=== PATIENT | female | born 1980 | race Caucasian/White ===

== ENCOUNTER 2016-07-27 02:10 | Inpatient (IN) | payer OTHER ==
[~2016-07-27] VITALS: Ht 170.2 cm; Wt 119.7 kg
[~2016-07-27 02:10] MED LIST: AUGMENTIN 875-1 EACH PO; CYCLOBENZAPRINE10 M1 PO; CYMBALTA30 M1 PO; DYAZIDE 37.5-21 EACH PO; OXYCODONE HCL30 M1 PO; PERCOCET 5-3251 EACH PO
--- NOTE | 2016-07-27 09:28 | Admission Core Measures ---
Admission Lab Results I reviewed the following labs: Laboratory Tests 07/27 632 Urines Urine Test NEGATIVE Admission Meds I reviewed the following Meds: Current Medications Sig/Anne Start time Last Medication Dose Stop Time Status Admin Cefazolin Sodium 3,000 MG ONCE 07/27 0000 NR (Kefzol-Ancef Inj) 07/27 2358 Heparin Sodium 5,000 UNIT ONCE 07/27 0000 NR (Porcine) 07/27 2358 Acute Coronary Syndrome Inclusion Criteria ACS Diagnosis No Inpatient Core Measures LDL Reminder: If No, please order W/I first 24hr of stay Congestive Heart Failure Inclusion Criteria CHF Diagnosis No Cerebrovascular accident Inclusion Criteria CVA/TIA Diagnosis No Inpatient Core Measures Bedside Swallow Eval Reminder: If BSE failed, place ST order Antithrombotic Reminder: Order Antithrombotic Medication by end of day 2 Antithrombotic Reminder: Document Reason Antithrombotic Not ordered by end of day 2 AFIB/Flutter Reminder: If Present, add to problem list AFIB/Flutter Reminder: Order Anticoag Medication for pts with AFIB/Flutter Atherosclerosis Reminder: If Present, add to problem list LDL Reminder: If No, please order W/I first 24hr of stay PT Order Reminder: If No, please order Venous thromboembolism Inpatient Core Measures VTE Risk Factors: Obesity, [facility] prophylaxis d/t No contraindications No VTE Pharm Prophylaxis d/t No contraindications Inclusion Criteria - Per Current guidelines, there needs to be overlap - treatment for the first 5 days of Warfarin therapy. - Parenteral Anticoagulation (IV or SC) needs to be - given along with Warfarin therapy. VTE Diagnosis No VTE Type NONE VTE Confirmed by (Test) NONE Problem List As ranked by this Provider includes Assessment & Plan 1. S/P laparoscopic sleeve gastrectomy HOME MEDS Home Med List Duloxetine Hydrochloride (Cymbalta) 30 MG CAPSULE.DR 1 CAP PO DAILY PAIN ( Reported) Oxycodone HCl 30 MG TABLET 1 TAB PO Q4P PRN PAIN (Reported) Triamterene/Hydrochlorothiazid (Dyazide 37.5-25 Capsule) 37.5 MG-25 MG CAPSULE 1 CAP PO DAILY EDEMA (Reported)
--- NOTE | 2016-07-27 09:41 | Operative Report ---
Operative/Inv Procedure Report Surgery Date: 07/27/16 Name of Procedure: Laparoscopic sleeve gastrectomy, Laparoscopic hiatal hernia repair Pre-Operative Diagnosis: Morbid obesity BMI 46 Post-Operative Diagnosis: Morbid Obesity BMI 46, Hiatal hernia Estimated Blood Loss: less than 50ml Surgeon/Human Resources Admin: LAUREN KINSEY DO Anesthesia: general endotracheal tube IV Fluids: 1600 cc Drains: 10 Fr RUQ MAC Drain Specimens: Stomach Complications: None Condition: Stable Operative Indication: This is a 36-year-old female that presented to the office for workup for bariatric surgery. After appropriate workup was completed with discussed with the patient the band, the sleeve, and the gastric bypass. The patient chose to undergo a sleeve gastrectomy. All risks including but not limited to bleeding, infection, leak, stricture, injury to surrounding bowel/esophagus/stomach/liver/ spleen, long-term reflux, DVT/PE, and mortality of 04/999 patients were discussed in detail. The patient understood everything and decided to proceed. Operative/Procedure Note Note: The patient was brought to the operating room and placed on the operating room table in supine position. Venodyne stockings were placed and adequate general endotracheal anesthesia was obtained. The patient was prepped and draped in standard surgical fashion. Began the procedure by making a 2 cm transverse incision supraumbilically and slightly to the left of the midline. Then using a 12 mm clear Visiport and a 10 mm 0 laparoscope, the abdominal cavity was accessed. Great care was taken to go through the anterior rectus sheath, the posterior rectus sheath, and through the peritoneum. Once we entered the peritoneum the abdominal cavity was insufflated to 15 mmHg. Upon initial examination no obvious gross pathology was seen. Accessory trocars were placed, 5 mm in the epigastrium for the Rachel liver retractor. The retractor was inserted and the liver was retracted anteriorly exposing the hiatus, small hiatal hernia was seen. 5 mm ports were placed in the right and left upper quadrant, a 5 mm left lateral port, and a 15 mm right lateral port. Began the procedure by mobilizing the greater curvature of the stomach approximately 7 cm from the pylorus. Once the retrogastric space was reached the whole greater curvature was mobilized maintaining hemostasis using Harmonic scalpel. Full hiatal dissection was performed, a small hiatal hernia was seen. The left augustin of the diaphragm was dissected away from the esophagus, reducing the hernia sac. We then brought our attention to the right augustin, the pars flaccida was opened until the right augustin was clearly visualized. Following this the right augustin was dissected away from the esophagus as well and the esophagus was circumferentially dissected out of the chest. At the completion of dissection the esophagus was in the abdominal cavity for about 2-3 cm. The esophagus was retracted anteriorly and the hiatus was closed using 2-0 Tycron suture. At the completion of the closure there was ample room for the esophagus and the hiatus was adequately closed. Posterior adhesions were taken down using Harmonic scalpel as well. Once the stomach was adequately mobilized a 38 Thai bougie was inserted and placed along the lesser curvature of the stomach. Once the bougie was in the appropriate position will began creating our sleeve, two 60 mm black staple loads with seamguard followed by three 60 mm purple staple loads with seamguard and finished with a 45 mm purple plain load. Great care was taken to leave ample room at the incisura angularis, to prevent any twisting or kinking of the sleeve, to stay lateral to the esophagogastric fat pad, and to do a full fundal excision. At the completion of the staple line the staple line was examined, it appeared intact and no obvious bleeding was noted. The bougie was removed, the sleeve was lying nicely without any twisting or kinking. The resected stomach was removed through the 15 right lateral port site. The port and the left upper quadrant were irrigated until clear. A 10 Thai MAC drain was placed through the right upper quadrant incision under the liver and over the spleen. All ports were removed under direct visualization no obvious bleeding was noted. The 15 mm port site fascia was closed using 0 Vicryl suture. The skin was closed using 4-0 Vicryl. Steri-Strips and dressings were placed. The patient was successfully extubated and transferred to the recovery room in stable condition. The patient tolerated the procedure well with no complications. Findings: 3 cm hiatal hernia, 38 Fr Bougie
[2016-07-27 12:08] VITALS: BP 154/106
[2016-07-27] MEDS ORDERED: ZANAFLEX4 M2 PO (12:27)
[2016-07-27] MEDS ORDERED: OXYCONTIN40 M1 PO (12:28)
[2016-07-27] MEDS ORDERED: XANAX0.5 M1 PO (12:28)
--- NOTE | 2016-07-27 13:24 | Admission Core Measures ---
Admission Lab Results I reviewed the following labs: Laboratory Tests 07/27 06 Urines Urine Test NEGATIVE Admission Meds I reviewed the following Meds: Current Medications Sig/Anne Start time Last Medication Dose Stop Time Status Admin Acetaminophen/ 15 ML Q6P PRN 07/27 1145 AC Hydrocodone Bitart (Hycet) Alprazolam 0.5 MG TID PRN 07/27 1330 UNVr (Xanax) 08/03 1329 Cefazolin Sodium 1,000 MG IQ8 07/27 1600 AC (Kefzol-Ancef Inj) 07/28 0001 Duloxetine HCl 30 MG DAILY 07/27 1000 AC (Cymbalta) Heparin Sodium 5,000 UNIT Q8 07/27 1400 AC (Porcine) Hydromorphone HCl 1 MG Q3P PRN 07/27 1145 AC 07/27 (Dilaudid) 1235 Hyoscyamine 0.125 MG Q4 07/27 1000 AC (Levsin) Ketorolac 30 MG Q6 07/27 1200 AC 07/27 Tromethamine 07/28 0601 1150 (Toradol) Ondansetron HCl 4 MG Q6P PRN 07/27 1145 AC (Zofran) Oxycodone HCl 40 MG Q12 07/27 2200 UNVr (OxyCONTIN) Oxycodone HCl 30 MG Q6-PRN PRN 07/27 1330 UNVr (Roxicodone) Pantoprazole Sodium 40 MG DAILY 07/27 1000 AC 07/27 (Protonix) 1150 Potassium Chloride 20 MEQ .Q8H 07/27 1145 CAN (KCl 20MEQ in D5W NS 1000ML) Dextrose/Sodium 1,000 ML Chloride (D5-Normal Saline) Potassium Chloride 20 MEQ Q8H 07/27 1145 AC 07/27 (KCl 20MEQ in D5W NS 1150 1000ML) Dextrose/Sodium 1,000 ML Chloride (D5-Normal Saline) Simethicone 40 MG Q6P PRN 07/27 1145 AC (Mylicon) Tizanidine HCl 4 MG Q6-PRN PRN 07/27 1330 UNVr (Zanaflex) Acute Coronary Syndrome Inclusion Criteria ACS Diagnosis No Inpatient Core Measures LDL Reminder: If No, please order W/I first 24hr of stay Congestive Heart Failure Inclusion Criteria CHF Diagnosis No Cerebrovascular accident Inclusion Criteria CVA/TIA Diagnosis No Inpatient Core Measures Bedside Swallow Eval Reminder: If BSE failed, place ST order Antithrombotic Reminder: Order Antithrombotic Medication by end of day 2 Antithrombotic Reminder: Document Reason Antithrombotic Not ordered by end of day 2 AFIB/Flutter Reminder: If Present, add to problem list AFIB/Flutter Reminder: Order Anticoag Medication for pts with AFIB/Flutter Atherosclerosis Reminder: If Present, add to problem list LDL Reminder: If No, please order W/I first 24hr of stay PT Order Reminder: If No, please order Venous thromboembolism Inpatient Core Measures VTE Risk Factors: Obesity, Surgery No [facility] VTE prophylaxis d/t No contraindications No VTE Pharm Prophylaxis d/t No contraindications Inclusion Criteria - Per Current guidelines, there needs to be overlap - treatment for the first 5 days of Warfarin therapy. - Parenteral Anticoagulation (IV or SC) needs to be - given along with Warfarin therapy. VTE Diagnosis No VTE Type NONE VTE Confirmed by (Test) NONE Problem List As ranked by this Provider includes Assessment & Plan 1. S/P laparoscopic sleeve gastrectomy HOME MEDS Home Med List Alprazolam (Xanax) 0.5 MG TABLET 0.5 MG PO TID PRN ANXIETY (Reported) Duloxetine Hydrochloride (Cymbalta) 30 MG CAPSULE.DR 1 CAP PO DAILY PAIN ( Reported) Oxycodone HCl (Oxycontin) 40 MG TAB.ER.12H 40 MG PO BID PAIN (Reported) Oxycodone HCl 30 MG TABLET 1 TAB PO Q4P PRN PAIN (Reported) Tizanidine HCl (Zanaflex) 4 MG CAPSULE 4 MG PO Q6P PRN . (Reported) Triamterene/Hydrochlorothiazid (Dyazide 37.5-25 Capsule) 37.5 MG-25 MG CAPSULE 1 CAP PO DAILY EDEMA (Reported)
--- NOTE | 2016-07-27 13:31 | PN- Bariatrics ---
Subjective Subjective: POST-OP NOTE: Reports some epigastric pain, which has improved with toradol and dilaudid. Tolerating stage 1 bariatric diet. No nausea. Out of bed to bathroom. No dizziness. No shortness of breath. No chest pains. Voided without difficulty. Objective Vital Signs and I&Os Vital Signs Date Time Temp Pulse Resp B/P B/P Pulse O2 O2 Flow FiO2 Mean Ox Delivery Rate 07/27 1208 97.6 67 18 154/106 95 Room Air Room Air 07/27 1208 95 Room Air Room Air Intake & Output 07/27 1600 07/27 0800 07/27 0000 07/26 1600 07/26 0800 07/26 0000 Intake Total Output Total Balance Patient 264 lb 270 lb Weight Physical Exam: General - alert & oriented x 3. comfortable. no acute distress. Lungs - clear bilaterally. no w/r/r. Cardiac - s1s2. reg. Abdomen - soft. dressings c/d/i. MAC drain with bloody drainage (20 mls in pacu) Extremities - warm bilaterally. no c/c/e. calves soft and nontender b/l. athrombics active. Assessment/Plan Assessment/Plan This 36 year old white female with hx chronic back / hip pain, htn, morbid obesity (bmi 46), who is POD#0 s/p laparoscopic sleeve gastrectomy, hiatal hernia repair stage 1 bariatric diet. npo after midnight for possible upper gi study in am resume her home pain medications, including oxycontin 40 bid and oxycodone 30 q6 -8 hrs continue toradol and iv dilaudid prn breakthrough pain hold bp meds and monitor vitals protonix - gi ppx hep sc - dvt ppx. lovenox risk score 3, so she will not need lovenox when discharged home oob/ambulation encouraged f/u am labs monitor MAC drain possible upper gi study in am will d/w Core Measures/Miscellaneous Venous Thromboembolism VTE Risk Factors: Obesity, Surgery VTE Contraindications: No Contraindications VTE Diagnosis: No VTE Type: NONE VTE Confirmed by (Test): NONE Beta Lisset Is Beta Lisset a Home Med? No Antibiotics Is Patient on Antibiotics? Yes If Yes: prophylaxis
[2016-07-27 15:01] VITALS: BP 130/70
[2016-07-27 15:10] VITALS: BP 118/60
[2016-07-27 18:05] VITALS: BP 146/88
[2016-07-27 22:30] VITALS: BP 156/100
[2016-07-28 06:27] VITALS: BP 152/100
--- NOTE | 2016-07-28 07:22 | PN- Bariatrics ---
Subjective Subjective: The patient was seen this morning postoperatively. She reports that her pain is under adequate control and she is without nausea. She is ambulating frequently and has no other complaints at the current time. She denies any chest pain, difficulty breathing, or leg pain. Objective Vital Signs and I&Os Vital Signs Date Time Temp Pulse Resp B/P B/P Pulse O2 O2 Flow FiO2 Mean Ox Delivery Rate 07/28 06 98.3 77 20 152/100 96 Room Air 07/28 0600 Room Air 07/27 2230 98.8 98 20 156/100 94 Room Air 07/27 2200 Room Air 07/27 1805 98.2 88 20 146/88 94 Room Air 07/27 1727 Room Air Room Air 07/27 1600 95 Room Air Room Air 07/27 1510 99.8 78 18 118/60 97 Room Air 07/27 1501 98.1 74 18 130/70 97 Room Air 07/27 1208 97.6 67 18 154/106 95 Room Air Room Air 07/27 1208 95 Room Air Room Air Intake & Output 07/28 0800 07/28 0000 07/27 1600 07/27 0800 07/27 0000 07/26 1600 Intake Total 1000 855 680 Output Total 650 1885 400 Balance 350 -1030 280 Intake, IV 1000 375 500 Intake, Oral 480 180 Output, 50 35 Drainage Output, Urine 600 1850 400 Patient 264 lb Weight Physical Exam: Gen.: Alert and in no obvious distress Skin: Warm and dry Abdomen: Soft, obese, appropriate incisional tenderness, bowel sounds positive. Port sites are clean, dry, and intact. There is a MAC 1 holding suction with serosanguineous drainage in the bulb. Extremities: Bilateral lower extremities are warm without calf tenderness or significant edema. Assessment/Plan Assessment/Plan Assessment: 36-year-old female status post laparoscopic sleeve gastrectomy and hiatal hernia repair postoperative day #1. The patient is progressing as expected, her pain is under adequate control, and she is without nausea. Plan: Cancel upper GI series and started bariatric stage I diet Decrease IV fluids Out of bed and ambulate GI and DVT prophylaxis Follow-up morning laboratory studies Continue current pain regiment Keep MAC is self suction Strict I's and O's Core Measures/Miscellaneous Venous Thromboembolism VTE Risk Factors: Obesity, Surgery VTE Contraindications: No Contraindications VTE Diagnosis: No VTE Type: NONE VTE Confirmed by (Test): NONE Beta Lisset Is Beta Lisset a Home Med? No Antibiotics Is Patient on Antibiotics? No
[2016-07-28 08:40] LABS: ABSOLUTE BASOPHIL COUNT 0 /CUMM (0.0-0.2); ABSOLUTE EOSINOPHIL COUNT 0 /CUMM (0.0-0.7); BASOPHIL % 0.3 % (0.0-2.0); MEAN CORPUSCULAR VOLUME 79.4 FL (81.0-99.0); RBC DISTRIBUTION WIDTH 16.9 % (11.5-14.5)
[2016-07-28 09:24] LABS: ABSOLUTE LYMPH COUNT 3.1 /CUMM (1.2-3.4); ABSOLUTE MONOCYTE COUNT 0.6 /CUMM (0.10-0.60); EOSINOPHIL % 0.2 % (0-5); GRANULOCYTE % 61.8 % (42.2-75.2); MEAN CORPUSCULAR HGB 26.3 PG (27.0-31.0); MEAN CORPUSCULAR HGB CONC 33.1 G/DL (33.0-37.0); PLATELET COUNT 216 /CUMM (130-400); RED BLOOD CELL CT 4.56 /CUMM (4.20-5.40); WHITE BLOOD CELL COUNT 9.7 /CUMM (4.8-10.8)
[2016-07-28 09:39] LABS: HEMATOCRIT 36.2 % (37-47)
[2016-07-28 10:30] VITALS: BP 140/88
[2016-07-28] MEDS ORDERED: PROTONIX40 M3 PO (14:20)
[2016-07-28] MEDS ORDERED: DILAUDID2 M1 PO (14:20)
--- NOTE | 2016-07-28 14:23 | Patient Discharge Instructions ---
Discharge Instructions General Discharge Information You were seen/treated for: Morbid obesity You had these procedures: Laparoscopic sleeve gastrectomy and hiatal hernia repair Watch for these problems: Significantly increased pain, nausea, or temperatures over 101 Increased redness or drainage from around the incisions Chest pain, difficulty breathing, or lower extremity pain No bath, but you may shower: Yes Other wound care: Remove dressings tomorrow morning leaving white strips intact until seen by surgeon Special Instructions: See preprinted information booklet Ambulate frequently May use Gas-X for gas pain Diet Recommended Diet: Bariatric Activity Activity Self Limited: Yes Pounds, do NOT lift more than: 10 Acute Coronary Syndrome Inclusion Criteria At DC or during hospital stay patient has or had the following: ACS DIAGNOSIS No Discharge Core Measures Meds if any: Prescribed or Continued at Discharge Meds if any: NOT Prescribed or Continued at Discharge Congestive Heart Failure Inclusion Criteria At DC or during hospital stay patient has or had the following: CHF DIAGNOSIS No Discharge Core Measures Meds if any: Prescribed or Continued at Discharge Meds if any: NOT Prescribed or Continued at Discharge Cerebrovascular accident Inclusion Criteria At DC or during hospital stay patient has or had the following: CVA/TIA Diagnosis No Discharge Core Measures Meds if any: Prescribed or Continued at Discharge Meds if any: NOT Prescribed or Continued at Discharge Venous thromboembolism Inclusion Criteria VTE Diagnosis No VTE Type NONE VTE Confirmed by (Test) NONE Discharge Core Measures - Per Current guidelines, there needs to be overlap - treatment for the first 5 days of Warfarin therapy. - If discharged on Warfarin prior to 5 days of - overlap therapy, the patient will need to be - assessed for post discharge needs including - *Post discharge parental anticoagulation - *Warfarin and/or parental anticoagulation education - *Follow up date to check INR post discharge At least 5 days overlap therapy as Inpatient No Meds if any: Prescribed or Continued at Discharge Note: Overlap Therapy is Warfarin and Anticoagulant Meds if any: NOT Prescribed or Continued at Discharge
[2016-07-28 14:26] VITALS: BP 168/94
--- NOTE | 2016-07-28 14:26 | Surg Short-stay <48hrs Dis Sum ---
Visit Information Visit Dates Admission Date: 07/27/16 Discharge Date: 07/28/16 Surgical Short Stay DC Summary Admission Diagnosis: Morbid obesity Final Diagnosis: Same Procedure(s): Laparoscopic sleeve gastrectomy and hiatal hernia repair Summary/Significant Findings: The patient is 07/27/2016. She was brought to the operating theater where she underwent a lap scopic sleeve gastrectomy and repair. Postoperatively the patients pain was well managed and she tolerated a bariatric stage I diet without nausea. The patient was discharged uneventful hospital course. Condition at Discharge: Stable Discharge Disposition: home or self care Discharge instructions provided to patient/family: Yes Post discharge follow-up plan: Call the office to be seen in one week
[2016-07-28 16:45] VITALS: BP 148/88
== END 2016-07-28 17:10 | DRG 621 ==
LOC: SDA 02:10 → ENRESERV 09:58 → 2NB 11:26 → ENPENDDIS 07-28 14:40 → 2NB 07-28 17:10
PROVIDERS: Physician Assistant Surgical; ADMIT Surgery
PROC: 0BQS4ZZ (ICD-10-PCS; principal; 2016-07-27)
PROC: 0DB64Z3 Excision of Stomach, Percutaneous Endoscopic Approach, Vertical (ICD-10-PCS; principal; 2016-07-27)
DX: E66.01 Morbid (severe) obesity due to excess calories (principal); K44.9 Diaphragmatic hernia without obstruction or gangrene; Z68.41 Body mass index [BMI] 40.0-44.9, adult; Z87.891 Personal history of nicotine dependence
CPT/HCPCS: 2NBSP; 81025; 82436; 88307; J0131; J0690; J1100; J1170; J1644; J1885; J2405; J7042; S5012

== ENCOUNTER 2017-10-29 12:59 | Emergency (ER) | payer OTHER ==
[~2017-10-29] VITALS: Ht 170.2 cm; Wt 84.4 kg
[~2017-10-29 12:59] MED LIST changes: +DILAUDID2 M1 PO; +IBUPROFEN600 M1 PO; +OXYCONTIN40 M1 PO; +PROTONIX40 M3 PO; +XANAX0.5 M1 PO; +ZANAFLEX4 M2 PO
--- NOTE | 2017-10-29 15:26 | ULTRASOUND REPORT ---
EXAMINATION: US TRIPLEX LOWER EXTREMITY, RIGHT CLINICAL INFORMATION: Right lower extremity swelling and redness. COMPARISON: None TECHNIQUE: Color-flow triplex imaging with spectral analysis and compression Doppler were performed on the lower extremity. FINDINGS: Respiratory variation, normal compression and augmented flow are noted throughout the lower extremity. The visualized common femoral vein, superficial femoral vein, profunda femoral vein, popliteal vein and midcalf peroneal and posterior tibial venous segments show no evidence of deep venous thrombosis. There is no Ravi's cyst. IMPRESSION: No evidence of deep venous thrombosis involving the lower extremity.
--- NOTE | 2017-10-29 15:51 | ED GENERAL ADULT ---
History of Present Illness General Chief Complaint: Lower Extremity Injury Stated Complaint: MULTIPLE COMPLAINTS, ?R FOOT CELLULITIS Source: patient Exam Limitations: no limitations Vital Signs & Intake/Output Vital Signs & Intake/Output Vital Signs Date Time Temp Pulse Resp B/P B/P Pulse O2 O2 Flow FiO2 Mean Ox Delivery Rate 10/29 1622 Room Air 10/29 1619 99.9 100 20 135/91 100 Room Air 10/29 1327 98.1 112 18 136/97 97 Room Air Allergies Coded Allergies: NO KNOWN ALLERGIES (03/01/16) Reconcile Medications Alprazolam (Xanax) 0.5 MG TABLET 0.5 MG PO TID PRN ANXIETY (Reported) Cephalexin (Keflex) 500 MG CAPSULE 1 CAP PO Q6H CELLULITIS Cyclobenzaprine HCl 10 MG TABLET 1 TAB PO TID PRN muscle stain Duloxetine Hydrochloride (Cymbalta) 30 MG CAPSULE.DR 1 CAP PO DAILY PAIN ( Reported) TAKES AT NIGHT Hydromorphone HCl (Dilaudid) 2 MG TABLET 1 TAB PO Q4P PRN PAIN Ibuprofen 600 MG TABLET 1 TAB PO Q6P PRN pain with food Oxycodone HCl 30 MG TABLET 1 TAB PO Q4P PRN PAIN (Reported) Oxycodone HCl (Oxycontin) 40 MG TAB.ER.12H 40 MG PO BID PAIN (Reported) Pantoprazole Sodium (Protonix) 40 MG TABLET.DR 1 TAB PO DAILY ANTI ULCER Tizanidine HCl (Zanaflex) 4 MG CAPSULE 4 MG PO Q6P PRN . (Reported) Triage Note: PT FROM HOME C/O PREVIOUS INJURY ON MONDAY NIGHT AROUND 1830 FALLING DOWN [address]. PT STATES HER RIGHT FOOT HAS AN ANKLE FRACTURE (ARRIVED IN BOOT) PT STATES " I DEF HAVE CELLULITIS, ITS 2X THE SIZE" PT NOTED TO HAVE A WRAPPED RIGHT ELBOW FROM INJURY. Triage Nurses Notes Reviewed? yes Onset: Abrupt Duration: day(s): (3), constant, continues in ED, getting worse Timing: single episode today Injury Environment: home Severity: moderate, severe Severity Numbers: 6 No Modifying Factors: none LMP (ages 10-50): unknown : No Patient currently breastfeeds: No HPI: 37 y/o female history of chronic back pain and right hip pain on pain management presents for reevaluation after a fall. Patient was seen here on Anil night after falling down a flight of stairs. She suffered a right ankle fracture and was placed into a boot. She also had multiple superficial abrasions to the right lower extremity and right upper extremity. She had x-rays of her right foot and ankle as well as her lower back and a CT scan of her head. She is coming back today because she feels like the swelling in her right lower extremity is getting worse. She also feels like the abrasions may be getting infected because there is now some redness. She has been wearing the boot giving elevated. She takes oxycodone at home as well as Flexeril. She denies fever she's not diabetic. (Richard Fam) Past History Travel History Traveled to [place] past 21 day No Medical History Any Pertinent Medical History? 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 No (Richard Fam) Review of Systems Review of Systems Constitutional: Reports: no symptoms. EENTM: Reports: no symptoms. Respiratory: Reports: no symptoms. Cardiovascular: Reports: no symptoms. GI: Reports: no symptoms. Genitourinary: Reports: no symptoms. Musculoskeletal: Reports: see HPI, joint pain, joint swelling. Skin: Reports: see HPI (abrasions), erythema. Neurological/Psychological: Reports: no symptoms. Hematologic/Endocrine: Reports: no symptoms. Immunologic/Allergic: Reports: no symptoms. All Other Systems: Reviewed and Negative (Richard Fam) Physical Exam Physical Exam General Appearance: well developed/nourished, no apparent distress, alert, awake Head: atraumatic, normal appearance Eyes: Bilateral: normal appearance, EOMI. Ears, Nose, Throat: hearing grossly normal Neck: normal inspection, supple, full range of motion Respiratory: normal breath sounds, chest non-tender, no respiratory distress, lungs clear Cardiovascular: normal peripheral pulses Peripheral Pulses: 2+ tibialis posterior (R), 2+ tibialis posterior (L), 2+ dorsalis pedis (R), 2+ dorsalis pedis (L) Gastrointestinal: soft, non-tender Back: normal inspection, normal range of motion, no vertebral tenderness Extremities: the right lower extremity is diffusely swollen from the mid calf to the foot. There are multiple superficial abrasions to the lateral aspect of the right ankle and right calf. There is surrounding erythema and soft tissue swelling. No focal fluctuant areas no discharge. Range of motion of the ankle is reduced due to pain. There is also a superficial abrasion to the right lateral forearm. n/v supply intact Neurologic/Psych: no motor/sensory deficits, awake, alert, oriented x 3, normal gait Skin: intact, normal color, warm/dry Lymphatic: no anterior cervical shari Core Measures ACS in differential dx? No CVA/TIA Diagnosis: No Sepsis Present: No Sepsis Focused Exam Completed? No (Griffin SLOIS,Richard) Progress Differential Diagnoses I considered the following diagnoses in my evaluation of the patient: [dvt cellulitis rhabdo] Plan of Care: Orders Procedure Date/time Status URINE 10/29 1349 Complete URINALYSIS 10/298 Complete Laboratory Tests 10/29/17 1350: Urinalysis LIGHT H, Urine Color YEL, Urine Clarity CLEAR, Urine pH 5.5, Ur Specific [place] >= 1.030, Urine Protein 30 H, Urine Ketones TRACE H, Urine Nitrite NEG, Urine Bilirubin NEG@ICTO, Urine Urobilinogen 1.0, Ur Leukocyte Esterase NEG, Ur Microscopic SEDIMENT EXAMINED, Urine RBC RARE, Urine WBC 1-3 H , Ur Epithelial Cells MOD H, Urine Bacteria MOD H, Hyaline Casts RARE H, Granular Casts RARE H, Urine Mucus MANY H, Urine Hemoglobin NEG, Urine Glucose NEG, Urine Test NEGATIVE 10/29/17 1349: Urine Test Cancelled Patient is here with worsening swelling worsening pain and now erythema to the right lower shimmy. Patient was seen here after a fall 3 days ago. She was diagnosed with a fracture of the right ankle. Review of the imaging reveals no fracture was seen to the radiologist. On exam it does appear that she may have a cellulitis as there is spreading redness and soft tissue swelling around the abrasions. Dressings were removed and replaced. An ultrasound was obtained to rule out DVT this was negative. Consider the possibility of rhabdo however patient has good distal pulses her pain is not out of proportion there is no pallor. Patient will be covered with cephalexin 500 every 6. Advised her to keep the areas clean and dry continue to wear boot rest ice elevation compression. Follow-up with ortho Continue at home pain medication. Discussed return precautions patient agrees with plan Diagnostic Imaging: Viewed by Me: Radiology Read, CT Scan, Ultrasound. Discussed w/RAD: Radiology Read, CT Scan, Ultrasound. Radiology Impression: PATIENT: SHARI RUIZ PRESENT AGE: 37 PATIENT ACCOUNT NO: [id number] : 81 LOCATION: [facility] ORDERING PHYSICIAN: Richard SOLIS SERVICE DATE: 10/29/17 EXAM TYPE: US - US- DUPLEX VENOUS EXTREM UNI EXAMINATION: US TRIPLEX LOWER EXTREMITY, RIGHT CLINICAL INFORMATION: Right lower extremity swelling and redness. COMPARISON: None TECHNIQUE: Color-flow triplex imaging with spectral analysis and compression Doppler were performed on the lower extremity. FINDINGS: Respiratory variation, normal compression and augmented flow are noted throughout the lower extremity. The visualized common femoral vein, superficial femoral vein, profunda femoral vein, popliteal vein and midcalf peroneal and posterior tibial venous segments show no evidence of deep venous thrombosis. There is no Ravi's cyst. IMPRESSION : No evidence of deep venous thrombosis involving the lower extremity. DICTATED BY: Cindy David MD DATE/TIME DICTATED:10/29/171521 TELEVISION ANCHOR:DELONTE DATE/TIME TRANSCRIBED:10/29/171521 CONFIDENTIAL, DO NOT COPY WITHOUT APPROPRIATE AUTHORIZATION. <Electronically signed in Other Vendor System> SIGNED BY: Cindy David MD 10/29/17 1155 Initial ED EKG: none (Richard Fam) Departure Departure Disposition: HOME OR SELF CARE Condition: Stable Clinical Impression Primary Impression: Cellulitis Qualifiers: Site of cellulitis: extremity Site of cellulitis of extremity: lower extremity Laterality: right Qualified Code: L03.115 - Cellulitis of right lower limb Referrals: Patient Has No Primary Care Dr (PCP/Family) Francesco Khalil MD Additional Instructions: Rest, keep her foot elevated. Wear splint at all times. Continue to take 2 at home pain medication as directed. Take antibiotics as directed for the full course. Patient to follow-up with her primary care doctor and provided orthopedic Dr. as soon as possible. Monitor symptoms return WITH SPREADING redness fever worsening swelling worsening pain or any other concerns. Departure Forms: Customer Survey General Discharge Information Prescriptions: Current Visit Scripts Cephalexin (Keflex) 1 CAP PO Q6H #40 CAP (Richard Fam) PA/FINAL FINISHER Co-Sign Statement Statement: ED Attending supervision documentation- [] I saw and evaluated the patient. I have also reviewed all the pertinent lab results and diagnostic results. I agree with the findings and the plan of care as documented in the PA's/FINAL FINISHER's documentation. [x] I have reviewed the ED Record and agree with the PA's/FINAL FINISHER's documentation. [] Additions or exceptions (if any) to the PAs/FINAL FINISHER's note and plan are summarized below: [] (Dean CASAS,[facility]) Critical Care Note Critical Care Note Critical Care Time: non-applicable (Richard Fam)
[2017-10-29] MEDS ORDERED: KEFLEX500 M1 PO (16:17)
[2017-10-29 16:19] VITALS: BP 135/91
== END 2017-10-29 16:26 ==
LOC: ERH 12:59
DX: L03.115 Cellulitis of right lower limb (principal)
CPT/HCPCS: 81001; 81025